=== PATIENT | male | born 1970 | race Caucasian/White ===

== ENCOUNTER 2016-09-19 11:00 | Emergency (ER) | payer MEDICAID ==
[2016-09-19 12:16] VITALS: BP 150/119
--- NOTE | 2016-09-19 13:44 | UC ---
Abdominal Pain Male HPI - HPI Summary HPI Summary: umbilical hernia causing more and more discomfort. Was very small a few months ago, seems to be getting bigger. Does a lot of lifting at work ([employer]), feels it tearing from time to time. No vomiting. No signs of incarceration. He would like to talk to a surgeon about getting it fixed. - History of Current Complaint Chief Complaint: UCAbdominalPain Stated Complaint: ABDOMINAL PAIN Time Seen by Provider: 09/19/16 13:31 Hx Obtained From: Patient Onset/Duration: Gradual Onset, Lasting Weeks - months Timing: Constant Severity Initially: Mild Severity Currently: Moderate Location: Other - umbilical Character: Burning, Sharp, Tearing Aggravating Factor(s):: Movement - lifting Alleviating Factor(s): Rest, Position Associated Signs And Symptoms: Positive: Negative - Risk Factors Testicular Torsion: Negative Cardiac Risk Factors: Negative - Allergies/Home Medications Allergies/Adverse Reactions: Allergies Allergy/AdvReac Type Severity Reaction Status Date / Time Amoxicillin [From Augmentin] Allergy Hives Verified 09/19/16 12:12 Clavulanic Acid Allergy Hives Verified 09/19/16 12:12 [From Augmentin] Home Medications: Home Medications Omeprazole CAP* [Prilosec CAP* 20 MG] 20 mg PO DAILY 09/19/16 [History Confirmed 09/19/16] PMH/Surg Hx/FS Hx/Imm Hx Previously Healthy: Yes - Surgical History Surgical History: Yes Surgery Procedure, Year, and Place: bilateral shoulder surgery. appy. R shoulder arthroscopy. Hemroid banding - Family History Known Family History: Negative: Respiratory Disease, Seizure Disorder - Social History Occupation: Employed Full-time - [employer] Lives: With Family Alcohol Use: Rare Substance Use Type: Marijuana Smoking Status (MU): Former Smoker Type: Cigarettes Amount Used/How Often: 1/2 pack daily Review of Systems Constitutional: Negative Skin: Negative Eyes: Negative ENT: Negative Respiratory: Negative Cardiovascular: Negative Gastrointestinal: Abdominal Pain Genitourinary: Negative Motor: Negative Neurovascular: Negative Musculoskeletal: Negative Neurological: Negative Psychological: Negative All Other Systems Reviewed And Are Negative: Yes Physical Exam Triage Information Reviewed: Yes Appearance: Well-Appearing, No Pain Distress, Well-Nourished Vital Signs: Initial Vital Signs Temp 98.7 F 09/19/16 12:07 Pulse 85 09/19/16 12:07 Resp 16 09/19/16 12:07 BP 150/119 09/19/16 12:07 Pulse Ox 97 09/19/16 12:07 Eye Exam: Normal ENT Exam: Normal Neck exam: Normal Respiratory Exam: Normal Cardiovascular Exam: Normal Abdomen Description: Positive: Other: - small umbilical hernia, size of pingpong ball. Reducible. Mildly tender. Overweight with large panniculus Bowel Sounds: Positive: Present Musculoskeletal Exam: Normal Neurological Exam: Normal Psychological Exam: Normal Skin Exam: Normal Abd Pain Male Course/Dx - Differential Dx/Clinical Impression Provider Diagnoses: umbilical hernia Discharge - Discharge Plan Condition: Stable Disposition: HOME Patient Education Materials: Umbilical Hernia (ED) Referrals: Stephon Xavier [Medical Doctor] - No Primary Care Phys,NOPCP [Primary Care Provider] - Additional Instructions: Try wearing a "hernia truss" or a back brace that velcros around over the area where the hernia is. Anything that puts pressure on the hernia will be helpful, particularly if you have to do lifting or exertion Talk to Dr. Torrez about options for repair
== END 2016-09-19 13:47 | disposition home or self-care (01) ==
LOC: UCCORT 11:00
DX: K42.9 Umbilical hernia without obstruction or gangrene (principal); Z88.1 Allergy status to other antibiotic agents; Z87.891 Personal history of nicotine dependence
CPT/HCPCS: 99201; G0463

== ENCOUNTER 2017-06-07 11:27 | Emergency (ER) | payer MEDICAID, OTHER ==
[2017-06-07 13:32] VITALS: BP 161/105
--- NOTE | 2017-06-07 14:00 | UC ---
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 - History of Current Complaint Chief Complaint: UCEye Stated Complaint: BILATERAL EYE COMPLAINT Time Seen by Provider: 06/07/17 13:23 Hx Obtained From: Patient Onset/Duration: Sudden Onset, Lasting Days Timing: Constant Severity Initially: Moderate Severity Currently: Severe Location of Injury: Conjunctiva, Eye Lid (lower), Eye Lid (upper), Periorbital, Sclera Character: Throbbing, Foreign Body Sensation Alleviating Factor(s): Nothing Associated Signs And Symptoms: Positive: Drainage (Purulent), Swelling - Risk Factors Acute Glaucoma Risk Factors: Eye Inflammation - Allergies/Home Medications Allergies/Adverse Reactions: Allergies Allergy/AdvReac Type Severity Reaction Status Date / Time Amoxicillin [From Augmentin] Allergy Hives Verified 06/07/17 13:32 Clavulanic Acid Allergy Hives Verified 06/07/17 13:32 [From Augmentin] Home Medications: Home Medications Pravastatin (NF) [Pravachol (NF)] 10 mg PO QAM 06/07/17 [History Confirmed 06/07] PMH/Surg Hx/FS Hx/Imm Hx Previously Healthy: Yes - Surgical History Surgical History: Yes Surgery Procedure, Year, and Place: bilateral shoulder surgery. appy. R shoulder arthroscopy. Hemroid banding - Family History Known Family History: Negative: Respiratory Disease, Seizure Disorder - Social History Alcohol Use: Rare Substance Use Type: Marijuana Substance Use Comment - Amount & Last Used: last week Smoking Status (MU): Former Smoker Type: Cigarettes Amount Used/How Often: 1/2 pack daily Review of Systems Constitutional: Negative Skin: Negative Eyes: Drainage, Eye Redness, Other - welling ot the eye lids ENT: Negative Respiratory: Negative Cardiovascular: Negative Gastrointestinal: Negative Genitourinary: Negative Motor: Negative Neurovascular: Negative Musculoskeletal: Negative Neurological: Negative Psychological: Negative Is Patient Immunocompromised?: No All Other Systems Reviewed And Are Negative: Yes Physical Exam Triage Information Reviewed: Yes Appearance: Well-Nourished, Ill-Appearing, Pain Distress Vital Signs: Initial Vital Signs Temp 98.5 F 06/07/17 13:25 Pulse 84 06/07/17 13:25 Resp 20 06/07/17 13:25 BP 161/105 06/07/17 13:25 Vital Signs Reviewed: Yes Eyes: Positive: Conjunctiva Inflamed, Discharge - clear drainage from the left eye, purulent from the right, bilateral lower lids are hard and swollen, periorbiltal cellulitis in both eyes, right is more than left, right eye multiple areas of subconjunctival hemmorage, decreased pupillary reaction. ENT Exam: Normal ENT: Positive: Hearing grossly normal, Pharynx normal, TMs normal Dental Exam: Normal Neck exam: Normal Neck: Positive: Supple, Nontender, No Lymphadenopathy Respiratory Exam: Normal Respiratory: Positive: Chest non-tender, Lungs clear, Normal breath sounds Cardiovascular Exam: Normal Cardiovascular: Positive: RRR, No Murmur, Pulses Normal Abdominal Exam: Normal Abdomen Description: Positive: Nontender, No Organomegaly, Soft Bowel Sounds: Positive: Present Musculoskeletal Exam: Normal Musculoskeletal: Positive: Strength Intact, ROM Intact, No Edema Neurological Exam: Normal Neurological: Positive: Alert, Muscle Tone Normal Psychological Exam: Normal Skin Exam: Normal Eye Complaint Course/Dx - Course Course Of Treatment: hx obtained, exam performed ,meds reviewed, patients eye doctor contacted and he was sent for further evaluation. - Differential Dx/Diagnosis Differential Diagnosis/HQI/PQRI: Conjunctivitis, Glaucoma, Periorbital Cellulitis, Orbital Cellulitis, Uveitis Provider Diagnoses: concrete burn to bilateral eyes. blepharitis bilateral eyes Discharge - Discharge Plan Condition: Stable Disposition: HOME Patient Education Materials: [employer] (ED) Referrals: No Primary Care Phys,NOPCP [Primary Care Provider] - Tod Jeong OD [Doctor of Osteopathy] - Additional Instructions: 1. Dr Jeong is willing to see you upon departure.
== END 2017-06-07 14:04 | disposition home or self-care (01) ==
LOC: UCCORT 11:27
DX: H01.006 Unspecified blepharitis left eye, unspecified eyelid (principal); H01.003 Unspecified blepharitis right eye, unspecified eyelid; T26.91XA Corrosion of right eye and adnexa, part unspecified, initial encounter; T26.92XA Corrosion of left eye and adnexa, part unspecified, initial encounter; T65.891A Toxic effect of other specified substances, accidental (unintentional), initial encounter; X58.XXXA Exposure to other specified factors, initial encounter; Y92.89 Other specified places as the place of occurrence of the external cause; Z88.8 Allergy status to other drugs, medicaments and biological substances; Z88.1 Allergy status to other antibiotic agents
CPT/HCPCS: 99211; G0463